=== PATIENT | male | born 1980 | race Two or more races ===

== ENCOUNTER 2017-07-13 10:00 | Emergency (ER) | payer MEDICAID ==
[~2017-07-13] VITALS: Ht 170.2 cm; Wt 70.3 kg
[2017-07-13 10:38] VITALS: BP 148/104
[2017-07-13] MEDS ORDERED: KETOROLAC TROMETHAMINE INJ 60 MG/2 ML VIAL IM ONE ×2 (10:54→11:00)
[2017-07-13] MEDS ORDERED: HYDROCODONE/APAP 5/325MG 1 EACH TABLET ONE (10:54)
[2017-07-13] MEDS ORDERED: MAG HYDROX/AL HYDROX/SIMETH 30 ML UDC ONE (10:54)
[2017-07-13] MEDS ORDERED: FAMOTIDINE (20 MG) 20 MG TABLET ONE (10:55)
[2017-07-13] MEDS ORDERED: MAG HYDROX/AL HYDROX/SIMETH 30 ML UDC PO ONE (11:00)
[2017-07-13] MEDS ORDERED: FAMOTIDINE (20 MG) 20 MG TABLET PO ONE (11:00)
[2017-07-13] MEDS ORDERED: HYDROCODONE/APAP 5/325MG 1 EACH TABLET PO ONE (11:00)
== END 2017-07-13 11:18 | disposition home or self-care (01) ==
LOC: ER 10:05
DX: M10.9 Gout, unspecified (principal); K29.70 Gastritis, unspecified, without bleeding
CPT/HCPCS: A4606; J1885; Z7610